=== PATIENT | male | born 1990 | race Caucasian/White ===

== ENCOUNTER 2018-03-28 16:23 | Emergency (ER) | payer OTHER ==
[~2018-03-28] VITALS: Ht 177.8 cm; Wt 68.0 kg
[~2018-03-28 16:23] MED LIST: INTESTINEX680 MG PO; ZANTAC150 MG PO
== END 2018-03-28 19:38 | disposition home or self-care (01) ==
LOC: ER 16:23
DX: G44.209 Tension-type headache, unspecified, not intractable (principal); R51 Headache